=== PATIENT | female | born 2000 | race Caucasian/White ===

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

== ENCOUNTER → 2019-01-19 | Outpatient (CLI) | payer BC ==
--- NOTE | 2019-01-19 19:48 | US ---
EXAMINATION TYPE: US thyroid st tissue head/neck DATE OF EXAM: 01/19/2019 COMPARISON: NONE CLINICAL HISTORY: R22.1. Pt states Dr may have felt enlarged thyroid on examination. Abnormal physica l exam GLAND SIZE: Right Lobe: 4.7 x 1.3 x 1.5 cm Overall Parenchyma: homogenous Left Lobe: 4.4 x 1.3 x 1.5 cm Overall Parenchyma: homogeneous Isthmus Thickness: 0.3 cm Bilateral neck scanned, no evidence of lymphadenopathy. Thyroid gland appeared wnl. IMPRESSION: 1. Normal thyroid
--- NOTE | 2019-01-20 08:04 | CT ---
EXAMINATION TYPE: CT brain wo/w con DATE OF EXAM: 01/19/2019 COMPARISON: 01/17/2009 HISTORY: Migraines x couple years. CT DLP: 2035.8mGycm CONTRAST: CT scan of the head is performed without and with IV Contrast, patient injected with 100 mL of Isovue M300. Unenhanced followed by contrast enhanced CT of the brain is submitted for evaluation. The ventricles are midline. There is no evidence for intracranial hemorrhage or extra-axial collection. No mass e ffects are identified. Visualized bony calvarium is intact. Contrast is administered and no enhanci ng lesions are detected. No pathologic enhancement is identified. If symptoms persist consider MRI. IMPRESSION: No distinct abnormality appreciated at this time.
== END | disposition home or self-care (01) ==
LOC: RADCTMAIN 16:31
PROVIDERS: ATTEND Family Medicine
DX: G43.809 Other migraine, not intractable, without status migrainosus (principal); R22.1 Localized swelling, mass and lump, neck
CPT/HCPCS: 76536; 70470; Q9967

== ENCOUNTER → 2019-01-22 | Outpatient (CLI) | payer BC ==
[2019-01-22 07:56] LABS: Basophils # (A) 0.1 k/uL (0-0.2); Basophils % (A) 1 %; Eosinophils # (A) 0.5 k/uL (0-0.7); Eosinophils % (A) 6 %; HCT 40.6 % (34.0-46.0); HGB 13.3 gm/dL (11.4-16.0); Lymphocytes # (A) 3.2 k/uL (1.0-4.8); Lymphocytes % (A) 38 %; MCH 28.8 pg (25.0-35.0); MCHC 32.8 g/dL (31.0-37.0); MCV 87.7 fL (80.0-100.0); Mean Platelet Volume 6.3; Monocytes # (A) 0.3 k/uL (0-1.0); Monocytes % (A) 4 %; Neutrophils # (A) 4.2 k/uL (1.3-7.7); Neutrophils % (A) 50 %; Platelet Count 313 k/uL (150-450); RBC 4.62 m/uL (3.80-5.40); RDW 12.8 % (11.5-15.5); WBC 8.4 k/uL (4.0-11.0)
[2019-01-22 11:13] LABS: Thyroid Peroxidase Antibodies 29.4 U/mL (0.0-60.0); Vitamin D 25 Hydroxy 30.3 ng/mL (30.0-100.0)
[2019-01-22 11:26] LABS: Hemoglobin A1C 5.3 % (4.0-6.0)
[2019-01-22 11:42] LABS: Erythrocyte Sedimentation Rate 23 mm/hr (0-20)
[2019-01-22 11:53] LABS: T4, Free (Free Thyroxine) 0.8 ng/dL (0.83-1.43)
[2019-01-22 12:06] LABS: Lyme IgG/IgM 0.13 Index
[2019-01-22 12:12] LABS: African American GFR (CKD) 152.1 (60.0-200.0); Albumin 4.1 g/dL (3.80-4.90); Albumin/Globulin Ratio 1.95 (1.60-3.17); Anion Gap 6.6 mmol/L (4.00-12.00); BUN/Creat Ratio 16.67 Ratio (12.00-20.00); C Reactive Protein 1.3 mg/dL (0.0-0.8); Calcium 9.1 mg/dL (8.7-10.3); Carbon Dioxide 26.4 mmol/L (21.6-31.8); Globulin 2.1 g/dL (1.6-3.3); LDL Cholesterol,Calculated 78.8 mg/dL (0.0-131.0); Magnesium 1.8 mg/dL (1.5-2.4); Potassium 4.4 mmol/L (3.5-5.5); Total Bilirubin 0.3 mg/dL (0.2-1.2); Total Protein 6.2 g/dL (6.2-8.2); VLDL Calculation 24.2 mg/dL (5.00-40.00)
== END ==
LOC: LABWHC1 07:13
PROVIDERS: ATTEND Family Medicine
DX: E56.9 Vitamin deficiency, unspecified (principal); G43.809 Other migraine, not intractable, without status migrainosus; F41.1 Generalized anxiety disorder; R22.1 Localized swelling, mass and lump, neck; Z13.228 Encounter for screening for other metabolic disorders; Z13.220 Encounter for screening for lipoid disorders
CPT/HCPCS: 36415; 80053; 80061; 82306; 82607; 83036; 83735; 84439; 84443; 85025; 85652; 86038; 86140; 86376; 86618

== ENCOUNTER 2019-07-02 21:30 | Emergency (ER) | payer BC ==
[2019-07-02 21:41] VITALS: TEMP 99
[2019-07-02] MEDS ORDERED: FAMOTIDINE 20 MG/2 ML VIAL IV STA (21:59)
[2019-07-02] MEDS ORDERED: methylPREDNISolone SOD SUCCI 125 MG/2 ML VIAL IV STA (21:59)
[2019-07-02] MEDS ORDERED: diphenhydrAMINE 50 MG/ML 1 ML VIAL IVP STA (21:59)
--- NOTE | 2019-07-02 22:56 | ED ---
Allergic Reaction HPI - General Chief complaint: Allergic Reaction Stated complaint: Allergic Reaction Time Seen by Provider: 07/02/19 21:45 Source: patient, RN notes reviewed, old records reviewed Mode of arrival: ambulatory Limitations: no limitations - History of Present Illness Initial Comments: 18-year-old female presents emergency room today with concern for ALLERGIC reaction due to ingesting a cookie that was contaminated with tree nuts. She reports she's had a known history of reactions to this. She did take Benadryl after eating a cookie. She reports that she ate the cookies around 5:00. Patient states that since taking the Benadryl she had some initial relief but now that the Benadryl is wearing off she is continuing to feel tightening in her throat. She denies any hives. She states it does feel like her hands are somewhat swollen. - Related Data Previous Rx's Medication Instructions Recorded EPINEPHrine (Auto Inject) [Epipen] 0.3 mg IM ONCE PRN #2 pen 07/02/19 Famotidine [Pepcid] 20 mg PO BID #20 tablet 07/02/19 diphenhydrAMINE HCL [Benadryl] 25 mg PO Q6H #25 tab 07/02/19 predniSONE 20 mg PO BID #6 tab 07/02/19 Allergies Allergy/AdvReac Type Severity Reaction Status Date / Time tree nut Allergy Anaphylaxis Verified 07/02/19 21:41 Review of Systems ROS Statement: Those systems with pertinent positive or pertinent negative responses have been documented in the HPI. ROS Other: All systems not noted in ROS Statement are negative. Past Medical History Past Medical History: No Reported History History of Any Multi-Drug Resistant Organisms: None Reported Past Surgical History: No Surgical Hx Reported Past Psychological History: Depression Smoking Status: Never smoker Past Alcohol Use History: None Reported Past Drug Use History: None Reported General Exam - General Exam Comments Initial Comments: 1-year-old female. Alert and oriented. No distress. Limitations: no limitations General appearance: alert, in no apparent distress Head exam: Present: atraumatic, normocephalic, normal inspection Eye exam: Present: normal appearance ENT exam: Present: normal exam, mucous membranes moist, other (No tongue swelling.) Neck exam: Present: normal inspection. Absent: tenderness, meningismus, lymphadenopathy Respiratory exam: Present: normal lung sounds bilaterally, other (No stridor.). Absent: respiratory distress, wheezes, rales, rhonchi, stridor Cardiovascular Exam: Present: regular rate, normal rhythm, normal heart sounds. Absent: systolic murmur, diastolic murmur, rubs, gallop, clicks GI/Abdominal exam: Present: soft, normal bowel sounds. Absent: distended, tenderness, guarding, rebound, rigid Extremities exam: Present: normal inspection, full ROM, normal capillary refill. Absent: tenderness, pedal edema, joint swelling, calf tenderness Back exam: Present: normal inspection Neurological exam: Present: alert, oriented X3, CN II-XII intact Course Vital Signs 07/02/19 07/02/19 21:35 23:07 Temperature 99.0 F Pulse Rate 102 H 86 Respiratory 18 16 Rate Blood Pressure 119/83 116/68 O2 Sat by Pulse 96 99 Oximetry Medical Decision Making - Medical Decision Making 18-year-old female presents today for ALLERGIC reaction to eating a cookie that was contaminated with treatments. She has a known history of ALLERGIES. Patient was given IV site [place] Pepcid and Benadryl. Reevaluation she stating that she feels better, she had no initial stridor or tongue swelling on exam. She states it feels less tight likely. Patient states that she is out of her EpiPen at home. We'll write the Patient for epi pens, steroids and Benadryl to go home with. Discussed return parameters. All questions were answered. Disposition Clinical Impression: Allergic reaction Disposition: HOME SELF-CARE Condition: Good Instructions (If sedation given, give patient instructions): Anaphylaxis (ED) Additional Instructions: Take meds as prescribed. Follow up with PCP. Avoid any nut containing cookies. Benadryl every 6 hours. Prescriptions: diphenhydrAMINE HCL [Benadryl] 25 mg PO Q6H #25 tab EPINEPHrine (Auto Inject) [Epipen] 0.3 mg IM ONCE PRN #2 pen PRN Reason: Anaphylaxis Famotidine [Pepcid] 20 mg PO BID #20 tablet predniSONE 20 mg PO BID #6 tab Is patient prescribed a controlled substance at d/c from ED?: No Referrals: Charlotte Pereyra MD [Primary Care Provider] - 1-2 days Time of Disposition: 22:53
[2019-07-02 23:08] VITALS: BP 116/68; PULSE 86; RESP 16
== END 2019-07-02 23:09 | disposition home or self-care (01) ==
LOC: EC 21:30
DX: T78.1XXA Other adverse food reactions, not elsewhere classified, initial encounter (principal)
CPT/HCPCS: 99283; 96374; 96375 ×2; J1200; J2930

== ENCOUNTER → 2019-07-13 | Outpatient (CLI) | payer BC ==
[2019-07-13 20:01] LABS: % Iron Saturation 17.21 (12.00-45.00); African American GFR (CKD) 144.6 (60.0-200.0); Albumin 4.2 g/dL (3.80-4.90); Anion Gap 9.1 mmol/L (4.00-12.00); BUN/Creat Ratio 15.71 Ratio (12.00-20.00); C Reactive Protein 2.2 mg/dL (0.0-0.8); Calcium 9.2 mg/dL (8.7-10.3); Carbon Dioxide 26.9 mmol/L (21.6-31.8); Globulin 2.1 g/dL (1.6-3.3); Non-African American GFR(CKD) 124.7 (60.0-200.0); Potassium 4.2 mmol/L (3.5-5.5); Total Bilirubin 0.2 mg/dL (0.3-1.2); Total Protein 6.3 g/dL (6.2-8.2); Uric Acid 5.1 mg/dL (2.9-7.7)
== END | disposition home or self-care (01) ==
LOC: LABWHC1 12:23
PROVIDERS: ATTEND Family Medicine
DX: F32.81 Premenstrual dysphoric disorder (principal); F41.1 Generalized anxiety disorder; E56.9 Vitamin deficiency, unspecified; R00.2 Palpitations; R06.02 Shortness of breath; E78.5 Hyperlipidemia, unspecified
CPT/HCPCS: 36415; 80053; 82306; 82550; 82607; 83540; 83550; 83735; 84439; 84443; 84550; 85379; 85652; 86038; 86140

== ENCOUNTER → 2019-07-16 | Outpatient (CLI) | payer BC ==
--- NOTE | 2019-07-17 16:00 | ECHOF ---
Referral Reason:R00.2 palpations MEASUREMENTS -------- HEIGHT: 170.2 cm WEIGHT: 108.9 kg BP: 129/71 RVIDd: 3.1 cm (< 3.3) IVSd: 1.2 cm (0.6 - 1.1) LVIDd: 4.0 cm (3.9 - 5.3) LVPWd: 1.1 cm (0.6 - 1.1) IVSs: 1.5 cm LVIDs: 2.9 cm LVPWs: 1.6 cm LA Diam: 3.0 cm (2.7 - 3.8) LAESV Index (A-L): 19.15 ml/m Ao Diam: 3.0 cm (2.0 - 3.7) AV Cusp: 2.4 cm (1.5 - 2.6) MV EXCURSION: 16.356 mm (> 18.000) MV EF SLOPE: 86 mm/s (70 - 150) EPSS: 0.6 cm MV E Dino: 0.80 m/s MV DecT: 259 ms MV A Dino: 0.45 m/s MV E/A Ratio: 1.77 TAPSE: 17.57 mm FINDINGS -------- Sinus rhythm. This was a technically good study. The left ventricular size is normal. There is borderline concentric left ventricular hypertrophy. Overall left ventricular systolic function is normal with, an EF between 55 - 60 %. The right ventricle is normal in size. Normal LA size by volume 22+/-6 ml/m2. The right atrium is normal in size. Interatrial and interventricular septum intact. The aortic valve is trileaflet and appears structurally normal. The mitral valve is normal. Trace tricuspid regurgitation present. Trace/mild (physiologic) pulmonic regurgitation. The aortic root size is normal. Normal inferior vena cava with normal inspiratory collapse consistent with estimated right atrial pre ssure of 5 mmHg. There is no pericardial effusion. CONCLUSIONS -------- 1. Sinus rhythm. 2. This was a technically good study. 3. The left ventricular size is normal. 4. There is borderline concentric left ventricular hypertrophy. 5. Overall left ventricular systolic function is normal with, an EF between 55 - 60 %. 6. The right ventricle is normal in size. 7. Normal LA size by volume 22+/-6 ml/m2. 8. The right atrium is normal in size. 9. Interatrial and interventricular septum intact. 10. The aortic valve is trileaflet and appears structurally normal. 11. The mitral valve is normal. 12. Trace tricuspid regurgitation present. 13. Trace/mild (physiologic) pulmonic regurgitation. 14. The aortic root size is normal. 15. Normal inferior vena cava with normal inspiratory collapse consistent with estimated right atrial pressure of 5 mmHg. 16. There is no pericardial effusion. PARKING ASSISTANT: Arely Lee RDCS
== END | disposition home or self-care (01) ==
LOC: RADECHMAIN 13:58
PROVIDERS: ATTEND Family Medicine
DX: I51.7 Cardiomegaly (principal)
CPT/HCPCS: 93306

== ENCOUNTER → 2019-08-06 | Outpatient (CLI) | payer BC ==
--- NOTE | 2019-08-23 10:35 | EM ---
EVENT MONITOR A 14-day event monitor. History of palpitations. This monitor shows: 1. Sinus mechanism. 2. Sinus tachycardia. 3. Intermittent artifact. 4. No arrhythmias. MMODL / IJN: [id number] /
== END | disposition home or self-care (01) ==
LOC: RADECHMAIN 13:06
PROVIDERS: ATTEND Family Medicine
DX: R00.0 Tachycardia, unspecified (principal); R00.2 Palpitations; R06.02 Shortness of breath
CPT/HCPCS: 93270

== ENCOUNTER → 2019-12-21 | Day surgery (SDC) | payer BC ==
[2019-12-17 15:52] VITALS: BMI 36.0
[~2019-12-21] MED LIST: SODIUM CHLORIDE 0.9% 1,000 ML IV SCH
[2019-12-21 09:19] VITALS: BP 128/78; RESP 16; TEMP 98.9
[2019-12-21 11:13] VITALS: PULSE 61
--- NOTE | 2019-12-21 14:14 | P.PCN ---
Preoperative Diagnosis: Diagnosis Recurrent presyncope Twelve-lead EKG Sinus rhythm normal MS narrow QRS normal ST segments with early repolarization abnormality inferolaterally Tilt table test per protocol Baseline heart rate 56 beats a minute Baseline blood pressure 119/70 mmHg Patient was tilted upright at an angle of 70 per protocol in the next 10-12 m inutes her heart rate increased 101 beats a minute and subsequently to 122 beats a minute at which point there was sudden drop in her blood pressure and 72/45 mmHg When she was laid supine her blood pressure normalized 114/64 mmHg and heart rate normalized back to 55 beats a minute She felt hot, felt her heart flutter and said she was about to pass out and then had a syncopal spell. She is pale Impression Postural tachycardia syndrome/orthostatic intolerance Secondary drop in blood pressure, neurocardiogenic syncope
== END ==
LOC: CATHEP 08:54
PROVIDERS: ATTEND Internal Medicine Clinical Cardiac Electrophysiology
DX: R55 Syncope and collapse (principal); Z79.899 Other long term (current) drug therapy
CPT/HCPCS: 81025; 93660

== ENCOUNTER 2021-03-16 19:34 | Emergency (ER) | payer BC, OTHER ==
[2021-03-16] MEDS ORDERED: ACETAMINOPHEN TAB 325 MG TAB PO STA (20:24)
[2021-03-16] MEDS ORDERED: IBUPROFEN 600 MG STARTER PACK 4 TAB BTL PO STA (20:24)
--- NOTE | 2021-03-16 20:26 | ED ---
Upper Extremity HPI - General Chief Complaint: Extremity Injury, Upper Stated Complaint: IHS, Right Hand Injury Time Seen by Provider: 03/16/21 20:20 Source: patient Mode of arrival: ambulatory Limitations: no limitations - History of Present Illness Initial Comments: 20 year-old female patient presents to the emergency department for evaluation of right hand pain. States around 7pm her hand was crushed between a metal door and a wall. States she is having pain over the "knuckles" on her hand. States she initially had some tingling but that has resolved. She denies taking anything for pain. Denies any other injuries. Denies chance of . - Related Data Home Medications Medication Instructions Recorded Confirmed Blisovi 1 tab PO HS 12/17/19 12/21/19 Calcium/Magnesium/Zinc 1 each PO DAILY 12/17/19 12/21/19 [Siflkso-Ckjojzfat-Nyno Tablet] Cholecalciferol [Vitamin D3 (25 2,000 unit PO DAILY 12/17/19 12/21/19 Mcg = 1000 Iu)] Cyanocobalamin [Vitamin B-12] 500 mcg PO MOTUWETHFR 12/17/19 12/21/19 Sertraline [Zoloft] 150 mg PO HS 12/17/19 12/21/19 Previous Rx's Medication Instructions Recorded EPINEPHrine (Auto Inject) [Epipen] 0.3 mg IM ONCE PRN #2 pen 07/02/19 Allergies Allergy/AdvReac Type Severity Reaction Status Date / Time tree nut Allergy Anaphylaxis Verified 03/16/21 19:51 Review of Systems ROS Statement: Those systems with pertinent positive or pertinent negative responses have been documented in the HPI. ROS Other: All systems not noted in ROS Statement are negative. Past Medical History Past Medical History: No Reported History Additional Past Medical History / Comment(s): palpitations. see dr perry's H&P History of Any Multi-Drug Resistant Organisms: None Reported Past Surgical History: Ear Surgery Additional Past Surgical History / Comment(s): ventilations tubes ears as child Past Anesthesia/Blood Transfusion Reactions: Family History of Problems w/ Anesthesia Additional Past Anesthesia/Blood Transfusion Reaction / Comment(s): MOM-ponv Past Psychological History: Depression Smoking Status: Never smoker Past Alcohol Use History: None Reported Past Drug Use History: None Reported General Exam Limitations: no limitations General appearance: alert, in no apparent distress, other (This is a well- developed, well-nourished adult female patient in no acute distress. Vital signs upon presentation are temperature 98.2F, pulse 82, respirations 20, blood pressure 149/99, pulse ox 98% on room air.) Respiratory exam: Present: normal lung sounds bilaterally. Absent: respiratory distress, wheezes, rales, rhonchi, stridor Cardiovascular Exam: Present: regular rate, normal rhythm, normal heart sounds. Absent: systolic murmur, diastolic murmur, rubs, gallop, clicks Extremities exam: Present: full ROM, tenderness (Over the distal metacarpals on the right hand.), normal capillary refill, other (Soft tissue swelling noted over the metacarpals on the right hand. Skin is otherwise pink, warm, dry. Cap refill less than 3 seconds. Radial pulses 2+.). Absent: pedal edema, joint swelling, calf tenderness Neurological exam: Present: alert, oriented X3, CN II-XII intact Psychiatric exam: Present: normal affect, normal mood Skin exam: Present: warm, dry, intact, normal color. Absent: rash Course Vital Signs 03/16/21 03/16/21 19:49 21:03 Temperature 98.2 F 97.8 F Pulse Rate 82 78 Respiratory 20 18 Rate Blood Pressure 149/99 133/69 O2 Sat by Pulse 98 97 Oximetry Medical Decision Making - Medical Decision Making 20 year-old female patient presents to the emergency department for evaluation of right hand pain after an injury. Physical examination reveals soft tissue swelling over the right hand tenderness over the metacarpals. X-ray was obtained and was negative. We did discuss contusion related to her injury. She states an Markie wrap. She'll be discharged. The primary care physician for recheck in 1-2 days. Return parameters were discussed in detail. She verbalizes understanding and agrees with this plan. My attending is Dr. Thompson. - Radiology Data Radiology results: report reviewed, image reviewed X-ray of the right hand is obtained. Report is reviewed in its entirety. Impression by Dr. East shows no acute fracture dislocation. Disposition Clinical Impression: Contusion of right hand Disposition: HOME SELF-CARE Condition: Good Instructions (If sedation given, give patient instructions): Contusion in Adults (ED) Additional Instructions: Use Markie wrap for comfort and support. Take Tylenol and Motrin for pain control. Follow up with her primary care physician for recheck in 1-2 days. Have repeat x-rays performed in 7-10 days if pain symptoms persist. Return to the emergency department for any new, worsening, or concerning symptoms. Is patient prescribed a controlled substance at d/c from ED?: No Referrals: None,Stated [Primary Care Provider] - 1-2 days Time of Disposition: 21:00
--- NOTE | 2021-03-16 20:57 | XR ---
EXAMINATION TYPE: XR hand complete RT DATE OF EXAM: 03/16/2021 COMPARISON: NONE HISTORY: . Pain. Metacarpal pain. Crush injury. TECHNIQUE: AP, oblique, and lateral views of the right hand FINDINGS: No acute fracture. No dislocation. Joint spaces and alignment are normal. Normal mineraliza tion. No significant soft tissue swelling. IMPRESSION: No acute fracture or dislocation.
[2021-03-16 21:04] VITALS: BP 133/69; PULSE 78; RESP 18; TEMP 97.8
== END 2021-03-16 21:04 | disposition home or self-care (01) ==
LOC: EC 19:34
DX: S60.221A Contusion of right hand, initial encounter (principal); F32.9 Major depressive disorder, single episode, unspecified; Z79.899 Other long term (current) drug therapy; W23.0XXA Caught, crushed, jammed, or pinched between moving objects, initial encounter
CPT/HCPCS: 99283

== ENCOUNTER 2021-09-17 15:01 | Emergency (ER) | payer BC ==
[2021-09-17] MEDS ORDERED: SODIUM CHLORIDE 0.9% 1,000 ML IV STA (17:58)
[2021-09-17] MEDS ORDERED: ONDANSETRON 4 MG/2 ML VIAL IVP STA (17:58)
[2021-09-17] MEDS ORDERED: FAMOTIDINE 20 MG/2 ML VIAL IV STA (17:59)
--- NOTE | 2021-09-17 18:15 | ED ---
Abdominal Pain HPI - General Chief Complaint: Abdominal Pain Stated Complaint: possible stomach ulcer Time Seen by Provider: 09/17/21 17:50 Source: patient Mode of arrival: ambulatory Limitations: no limitations - History of Present Illness Initial Comments: Is a 20-year-old female presenting with a chief complaint of abdominal pain. Pain is located in the epigastric region and has been vaguely present for about a week. She has been taking [id number] Prilosec, but has not been taking medication for the last 2 days. She has noticed a worsening of symptoms over the last 2 days, pain is sharp and intense is accompanied by nausea and bilious vomiting. Pain is worse with intake of food. She admits to diarrhea starting today. Denies chest pain, shortness of breath, fever, chills, constipation, melena, hematochezia, hematemesis, hemoptysis, cough, palpitations, rash, flank pain, dysuria, hematuria. MD Complaint: abdominal pain - Related Data Home Medications Medication Instructions Recorded Confirmed Ascorbic Acid [Vitamin C] 500 mg PO DAILY 09/17/21 09/17/21 Cholecalciferol [Vitamin D3 (25 100 mcg PO DAILY 09/17/21 09/17/21 Mcg = 1000 Iu)] Melatonin 5 mg PO HS PRN 09/17/21 09/17/21 Nortrel 1/35 1 tab PO DAILY 09/17/21 09/17/21 Zinc 50 mg PO DAILY 09/17/21 09/17/21 Allergies Allergy/AdvReac Type Severity Reaction Status Date / Time tree nut Allergy Anaphylaxis Verified 09/17/21 19:53 Review of Systems ROS Statement: Those systems with pertinent positive or pertinent negative responses have been documented in the HPI. ROS Other: All systems not noted in ROS Statement are negative. Past Medical History Past Medical History: No Reported History Additional Past Medical History / Comment(s): palpitations. see dr perry's H&P History of Any Multi-Drug Resistant Organisms: None Reported Past Surgical History: Ear Surgery Additional Past Surgical History / Comment(s): ventilations tubes ears as child Past Anesthesia/Blood Transfusion Reactions: Family History of Problems w/ Ane sthesia Additional Past Anesthesia/Blood Transfusion Reaction / Comment(s): MOM-ponv Past Psychological History: Depression Smoking Status: Never smoker Past Alcohol Use History: None Reported Past Drug Use History: None Reported General Exam Limitations: no limitations General appearance: alert, in no apparent distress Head exam: Present: atraumatic, normocephalic, normal inspection Eye exam: Present: normal appearance, PERRL, EOMI. Absent: scleral icterus, conjunctival injection, periorbital swelling ENT exam: Present: normal exam, mucous membranes moist Neck exam: Present: normal inspection Respiratory exam: Present: normal lung sounds bilaterally. Absent: respiratory distress, wheezes, rales, rhonchi, stridor Cardiovascular Exam: Present: regular rate, normal rhythm, normal heart sounds. Absent: systolic murmur, diastolic murmur, rubs, gallop, clicks GI/Abdominal exam: Present: soft, tenderness (Epigastric region), normal bowel sounds. Absent: distended, guarding, rebound, rigid Neurological exam: Present: alert, oriented X3, CN II-XII intact Psychiatric exam: Present: normal affect, normal mood Skin exam: Present: warm, dry, intact, normal color. Absent: rash Course Vital Signs 09/17/21 16:15 Temperature 98 F Pulse Rate 115 H Respiratory 18 Rate Blood Pressure 134/79 O2 Sat by Pulse 99 Oximetry Medical Decision Making - Medical Decision Making She is a 20-year-old female presenting with a chief complaint of abdominal pain. Patient describes the pain as "rocks in my stomach" located in the epigastric region. Vague pain has been present for about a week, she has been taking Prilosec OTC. For the last 2 days she has been noncompliant with her medication and has noticed an increase in the pain. Today she had several episodes of vomiting and started having diarrhea. Pain is worse with food. Denies chest pain, shortness of breath, hematemesis, hematochezia, melena, "coffee ground emesis", palpitations, fever, chills, constipation, headache, numbness, tingling. On exam there is mild tenderness with palpation of the epigastric region, no rebound or guarding. She was given 1 L IV fluid bolus, Pepcid, and Zofran. Patient reports feeling better and less nauseous, pain is still present. KUB X-ray revealed nonacute abdomen. Ultrasound of abdomen shows no acute process, no abnormalities of the gallbladder. Patient was ordered a GI cocktail, pt responded well to treatment. Continue taking Prilosec, may take [id number] Pepcid as needed. Discharged patient with starter pack of Zofran. Answered all questions. Discussed return parameters. Patient conveyed verbal understanding and agreed to the plan. Dr. Deleon was my attending. - Lab Data Result diagrams: 09/17/21 18:13 09/17/21 18:13 Lab Results 09/17/21 09/17/21 09/17/21 Range/Units 18:13 18:13 18:13 WBC 12.1 H (3.8-10.6) k/uL RBC 5.19 (3.80-5.40) m/uL Hgb 15.5 (11.4-16.0) gm/dL Hct 47.0 H (34.0-46.0) % MCV 90.5 (80.0-100.0) fL MCH 29.9 (25.0-35.0) pg MCHC 33.1 (31.0-37.0) g/dL RDW 13.2 (11.5-15.5) % Plt Count 336 (150-450) k/uL MPV 7.3 Neutrophils % 93 % Lymphocytes % 4 % Monocytes % 2 % Eosinophils % 1 % Basophils % 0 % Neutrophils # 11.2 H (1.3-7.7) k/uL Lymphocytes # 0.5 L (1.0-4.8) k/uL Monocytes # 0.3 (0-1.0) k/uL Eosinophils # 0.1 (0-0.7) k/uL Basophils # 0.0 (0-0.2) k/uL Sodium (137-145) mmol/L Potassium (3.5-5.1) mmol/L Chloride (98-107) mmol/L Carbon Dioxide (22-30) mmol/L Anion Gap mmol/L BUN (7-17) mg/dL Creatinine (0.52-1.04) mg/dL Est GFR (CKD-EPI)AfAm (>60 ml/min/1.73 sqM) Est GFR (CKD-EPI)NonAf (>60 ml/min/1.73 sqM) Glucose (74-99) mg/dL Calcium (8.4-10.2) mg/dL Total Bilirubin (0.2-1.3) mg/dL AST (14-36) U/L ALT (4-34) U/L Alkaline Phosphatase (38-126) U/L Total Protein (6.3-8.2) g/dL Albumin (3.5-5.0) g/dL Amylase (30-110) U/L Lipase (23-300) U/L Urine Color Yellow Urine Appearance Cloudy H (Clear) Urine pH 6.0 (5.0-8.0) Ur Specific [place] 1.031 (1.001-1.035) Urine Protein 1+ H (Negative) Urine Glucose (UA) Negative (Negative) Urine Ketones 1+ H (Negative) Urine Blood Negative (Negative) Urine Nitrite Negative (Negative) Urine Bilirubin Negative (Negative) Urine Urobilinogen <2.0 (<2.0) mg/dL Ur Leukocyte Esterase Small H (Negative) Urine RBC 1 (0-5) /hpf Urine WBC 11 H (0-5) /hpf Ur Squamous Epith Cells 12 H (0-4) /hpf Urine Bacteria Occasional H (None) /hpf Urine Mucus Many H (None) /hpf Urine HCG, Qual Not Detected (Not Detectd) 09/17/21 Range/Units 18:13 WBC (3.8-10.6) k/uL RBC (3.80-5.40) m/uL Hgb (11.4-16.0) gm/dL Hct (34.0-46.0) % MCV (80.0-100.0) fL MCH (25.0-35.0) pg MCHC (31.0-37.0) g/dL RDW (11.5-15.5) % Plt Count (150-450) k/uL MPV Neutrophils % % Lymphocytes % % Monocytes % % Eosinophils % % Basophils % % Neutrophils # (1.3-7.7) k/uL Lymphocytes # (1.0-4.8) k/uL Monocytes # (0-1.0) k/uL Eosinophils # (0-0.7) k/uL Basophils # (0-0.2) k/uL Sodium 137 (137-145) mmol/L Potassium 4.7 (3.5-5.1) mmol/L Chloride 103 (98-107) mmol/L Carbon Dioxide 21 L (22-30) mmol/L Anion Gap 13 mmol/L BUN 10 (7-17) mg/dL Creatinine 0.67 (0.52-1.04) mg/dL Est GFR (CKD-EPI)AfAm >90 (>60 ml/min/1.73 sqM) Est GFR (CKD-EPI)NonAf >90 (>60 ml/min/1.73 sqM) Glucose 110 H (74-99) mg/dL Calcium 8.9 (8.4-10.2) mg/dL Total Bilirubin 0.9 (0.2-1.3) mg/dL AST 23 (14-36) U/L ALT 11 (4-34) U/L Alkaline Phosphatase 97 (38-126) U/L Total Protein 8.0 (6.3-8.2) g/dL Albumin 4.4 (3.5-5.0) g/dL Amylase 49 (30-110) U/L Lipase 39 (23-300) U/L Urine Color Urine Appearance (Clear) Urine pH (5.0-8.0) Ur Specific [place] (1.001-1.035) Urine Protein (Negative) Urine Glucose (UA) (Negative) Urine Ketones (Negative) Urine Blood (Negative) Urine Nitrite (Negative) Urine Bilirubin (Negative) Urine Urobilinogen (<2.0) mg/dL Ur Leukocyte Esterase (Negative) Urine RBC (0-5) /hpf Urine WBC (0-5) /hpf Ur Squamous Epith Cells (0-4) /hpf Urine Bacteria (None) /hpf Urine Mucus (None) /hpf Urine HCG, Qual (Not Detectd) - Radiology Data Radiology results: report reviewed KUB x-ray: Nonacute abdomen Complete abdominal ultrasound: No acute process, no gallbladder abnormalities Disposition Clinical Impression: Gastritis Disposition: HOME SELF-CARE Condition: Good Instructions (If sedation given, give patient instructions): Peptic Ulcer (ED), Gastritis (DC) Additional Instructions: Continue taking Prilosec, may take [id number] Pepcid as needed. Take starter pack of Zofran as prescribed. Return to the ER with any worsening symptoms or new onset alarming symptoms. Follow up with PCP in one to 2 days. Is patient prescribed a controlled substance at d/c from ED?: No Referrals: Charlotte Pereyra MD [Primary Care Provider] - 1-2 days Time of Disposition: 20:25
[2021-09-17 18:25] LABS: Appearance,Urine Cloudy (Clear); Bacteria,Urine Occasional /hpf; Bilirubin,Urine Negative (Negative); Blood,Urine Negative (Negative); Color,Urine Yellow; Glucose,Urine (UA) Negative (Negative); Ketones,Urine 1+ (Negative); Leukocyte Esterase,Urine Small (Negative); Mucus,Urine Many /hpf; Nitrite,Urine Negative (Negative); Protein,Urine 1+ (Negative); RBC,Urine 1 /hpf (0-5); Specific Gravity,Urine 1.031 (1.001-1.035); Squamous Epithelial Cell,Urine 12 /hpf (0-4); Urobilinogen,Urine <2.0 mg/dL (<2.0); WBC,Urine 11 /hpf (0-5)
[2021-09-17 18:35] LABS: ALT 11 U/L (4-34); AST 23 U/L (14-36); African American GFR (CKD) >90 (>60 ml/min/1.73 sqM); Albumin 4.4 g/dL (3.5-5.0); Alkaline Phosphatase 97 U/L (38-126); Amylase 49 U/L (30-110); Anion Gap 13 mmol/L; Blood Urea Nitrogen 10 mg/dL (7-17); Calcium 8.9 mg/dL (8.4-10.2); Carbon Dioxide 21 mmol/L (22-30); Chloride 103 mmol/L (98-107); Glucose 110 mg/dL (74-99); Lipase 39 U/L (23-300); Non-African American GFR(CKD) >90 (>60 ml/min/1.73 sqM); Potassium 4.7 mmol/L (3.5-5.1); Sodium 137 mmol/L (137-145); Total Bilirubin 0.9 mg/dL (0.2-1.3)
[2021-09-17 18:39] LABS: Basophils % (A) 0 %; Eosinophils # (A) 0.1 k/uL (0-0.7); Eosinophils % (A) 1 %; HGB 15.5 gm/dL (11.4-16.0); Lymphocytes # (A) 0.5 k/uL (1.0-4.8); Lymphocytes % (A) 4 %; MCH 29.9 pg (25.0-35.0); MCHC 33.1 g/dL (31.0-37.0); MCV 90.5 fL (80.0-100.0); Mean Platelet Volume 7.3; Monocytes # (A) 0.3 k/uL (0-1.0); Monocytes % (A) 2 %; Neutrophils # (A) 11.2 k/uL (1.3-7.7); Neutrophils % (A) 93 %; Platelet Count 336 k/uL (150-450); RBC 5.19 m/uL (3.80-5.40); RDW 13.2 % (11.5-15.5); WBC 12.1 k/uL (3.8-10.6)
--- NOTE | 2021-09-17 18:40 | XR ---
EXAMINATION TYPE: XR KUB DATE OF EXAM: 09/17/2021 COMPARISON: NONE HISTORY: Abdominal pain TECHNIQUE: 2 views FINDINGS: 2 views upright show no sign of intestinal obstruction or pneumoperitoneum. Fecal pattern i s normal. There is no evidence of a mass. Bases are clear. There are no pathologic calcifications. IMPRESSION: Nonacute abdomen.
[2021-09-17] MEDS ORDERED: MAG HYDROX/AL HYDROX/SIMETH 30 ML, HYOSCYAMINE ELIXIR 10 ML, LIDOCAINE VISCOUS 2% 10 ML PO STA ×3 (19:32)
--- NOTE | 2021-09-17 19:32 | US ---
EXAMINATION TYPE: US abdomen limited DATE OF EXAM: 09/17/2021 COMPARISON: NONE CLINICAL HISTORY: epigastric pain. Patient presents with nausea, vomiting, and epigastric pain for 1 day. EXAM MEASUREMENTS: Liver Length: 16.5 cm Gallbladder Wall: 0.21 cm CBD: 0.32 cm Right Kidney: 11.4 x 4.5 x 5.2 cm . Pancreas: wnl as seen Liver: wnl Gallbladder: wnl Evidence for sonographic Jane's sign: no CBD: wnl as visualized Right Kidney: No hydronephrosis or masses seen IMPRESSION: Negative exam. No gallstones or dilated ducts
[2021-09-17] MEDS ORDERED: ONDANSETRON 4 MG ODT STARTER PACK 2 TAB BTL PO STA (20:09)
[2021-09-17 21:15] VITALS: PULSE 92; RESP 16
[2021-09-17 21:16] VITALS: BP 134/77; TEMP 98
== END 2021-09-17 21:15 | disposition home or self-care (01) ==
LOC: EC 15:01
DX: K29.70 Gastritis, unspecified, without bleeding (principal)
CPT/HCPCS: 36415; 80053; 82150; 83690; 85025; 81001; 81025; 87086; 74018; 76705; 99284; 96374; 96375; 96361; J2405; S0119

== ENCOUNTER → 2022-12-10 | Outpatient (CLI) | payer BC ==
[2022-12-10 15:16] LABS: Basophils # (A) 0.03 X 10*3/uL; Basophils % (A) 0.3 %; Eosinophils % (A) 2.3 %; HCT 39.9 %; HGB 13.1 d/dL; Lymphocytes # (A) 3.58 X 10*3/uL; Lymphocytes % (A) 41.6 %; MCH 29.4 pg; MCHC 32.8 d/dL; MCV 89.7 FL; Mean Platelet Volume 9.8 FL; Monocytes # (A) 0.51 X 10*3/uL; Monocytes % (A) 5.9 %; NRBC Per 100 WBC 0 X 10*3/uL; Neutrophils # (A) 4.27 X 10*3/uL; Neutrophils % (A) 49.7 %; Platelet Count 350 X 10*3/uL; RBC 4.45 X 10*6/uL; RDW 12.9 %; WBC 8.61 X 10*3/uL
[2022-12-10 16:07] LABS: ALT 12 U/L; AST 14 U/L; Albumin 4.4 d/dL; Albumin/Globulin Ratio 1.69 Ratio; Alkaline Phosphatase 100 U/L; BUN/Creat Ratio 12.62 Ratio; Blood Urea Nitrogen 10.1 mg/dL; Calcium 9.5 mg/dL; Carbon Dioxide 24.7 mmol/L; Chloride 102 mmol/L; Chol/HDL Ratio 3.23 Ratio; Globulin 2.6 d/dL; Glucose 91 mg/dL; LDL Cholesterol,Calculated 93.9 mg/dL; Sodium 139 mmol/L; Total Bilirubin 0.3 mg/dL
[2022-12-10 18:12] LABS: C-Peptide 3.37 ng/mL
== END | disposition home or self-care (01) ==
LOC: LABWHC1 09:48
PROVIDERS: ATTEND Family Medicine
DX: Z00.00 Encounter for general adult medical examination without abnormal findings (principal); E88.81 Metabolic syndrome and other insulin resistance; G43.809 Other migraine, not intractable, without status migrainosus; F41.1 Generalized anxiety disorder; E53.8 Deficiency of other specified B group vitamins; E55.9 Vitamin D deficiency, unspecified; R73.9 Hyperglycemia, unspecified
CPT/HCPCS: 36415; 80053; 80061; 82306; 82607; 83036; 84439; 84443; 84681; 85025

== ENCOUNTER → 2023-02-11 | Outpatient (CLI) | payer BC ==
[2023-02-11 21:54] LABS: Urine Alcohol Negative (Negative)
[2023-02-11 22:05] LABS: Urine Barbiturate Negative (Negative); Urine Cocaine Negative (Negative); Urine Methadone Negative (Negative); Urine Opiates Negative (Negative); Urine Phencyclidine Negative (Negative)
== END | disposition home or self-care (01) ==
LOC: LABWHC1 16:15
PROVIDERS: ATTEND Psychiatry & Neurology Psychiatry
DX: F41.1 Generalized anxiety disorder (principal)
CPT/HCPCS: 80306

== ENCOUNTER → 2024-03-06 | Outpatient (CLI) | payer BC ==
[2024-03-07 06:43] LABS: Basophils # (A) 0.04 X 10*3/uL (0.00-0.10); Basophils % (A) 0.6 %; Eosinophils # (A) 0.24 X 10*3/uL (0.04-0.35); Eosinophils % (A) 3.6 %; HCT 37.8 % (37.2-50.0); HGB 12.1 g/dL (12.0-17.0); Lymphocytes % (A) 49.9 %; MCH 27.4 pg (27.0-32.0); MCV 85.7 FL (80.0-97.0); Mean Platelet Volume 9.7 FL (9.5-12.2); Monocytes # (A) 0.53 X 10*3/uL (0.20-1.00); NRBC Per 100 WBC 0 X 10*3/uL (0.00-0.01); Neutrophils # (A) 2.49 X 10*3/uL (1.80-7.70); Neutrophils % (A) 37.7 %; Platelet Count 346 X 10*3/uL (140-440); RBC 4.41 X 10*6/uL (4.10-5.60); RDW 14.4 % (11.5-14.5); WBC 6.61 X 10*3/uL (4.50-10.00)
[2024-03-07 07:12] LABS: Chol/HDL Ratio 3.46 Ratio
[2024-03-07 07:13] LABS: ALT 11 U/L (8-49); AST 15 U/L (13-35); Albumin 4.2 g/dL (3.8-4.9); Albumin/Globulin Ratio 1.75 Ratio (1.60-3.17); Alkaline Phosphatase 126 U/L (41-126); BUN/Creat Ratio 11.67 Ratio (12.00-20.00); Calcium 8.7 mg/dL (8.7-10.3); Carbon Dioxide 24.5 mmol/L (21.6-31.8); Chloride 104 mmol/L (96-109); Globulin 2.4 g/dL (1.6-3.3); Glucose 86 mg/dL (70-110); LDL Cholesterol,Calculated 86.6 mg/dL (0.0-131.0); Potassium 4.5 mmol/L (3.5-5.5); Sodium 139 mmol/L (135-145); Total Bilirubin 0.2 mg/dL (0.3-1.2); Total Protein 6.6 g/dL (6.2-8.2)
[2024-03-07 08:27] LABS: T4, Free (Free Thyroxine) 0.94 ng/dL (0.80-1.80)
== END ==
LOC: LABWHC1 09:03
PROVIDERS: ATTEND Family Medicine
DX: F90.9 Attention-deficit hyperactivity disorder, unspecified type (principal); R73.9 Hyperglycemia, unspecified; E78.5 Hyperlipidemia, unspecified; R63.2 Polyphagia; D51.9 Vitamin B12 deficiency anemia, unspecified
CPT/HCPCS: 36415; 80053; 80061; 82306; 82607; 83036; 84439; 84443; 85025